=== PATIENT | female | born 1975 | race Caucasian/White ===

== ENCOUNTER 2017-06-16 03:43 | Emergency (ER) | payer MEDICAID ==
[~2017-06-16] VITALS: Ht 160 cm; Wt 62.9 kg
[2017-06-16 03:45] VITALS: BP 149/86
[2017-06-16] MEDS ORDERED: HYDROcodone/APAP 5/325 TABLET ONE (04:18)
[2017-06-16] MEDS ORDERED: HYDROcodone/APAP 5/325 TABLET PO ONE (04:30)
== END 2017-06-16 05:02 | disposition home or self-care (01) ==
LOC: ED 04:54
DX: M79.641 Pain in right hand (principal); G89.11 Acute pain due to trauma
CPT/HCPCS: 99284